=== PATIENT | male | born 1960 | race American Indian/Alaskan Native ===

== ENCOUNTER 2018-08-30 18:40 | Inpatient (IN) | payer MEDICARE, OTHER ==
[2018-08-30] MEDS ORDERED: ASPIRIN PO ONE (18:55)
[2018-08-30 19:39] LABS: Calcium 9.5 mg/dL (8.4-10.2)
[2018-08-30 19:54] LABS: Basophils % (Auto) 0.8 % (0.0-1.8); Eosinophils # (Auto) 0.2 K/mm3 (0.0-0.4); Eosinophils % (Auto) 4.1 % (0.0-4.3); Hematocrit 35.4 % (35.5-45.6); Hemoglobin 12.1 gm/dl (11.8-15.2); Lymphocytes # (Auto) 1.7 K/mm3 (1.2-5.4); Lymphocytes % (Auto) 27.6 % (13.4-35.0); Mean Corpuscular HGB Conc 34 % (32-34); Mean Corpuscular Volume 94 fl (84-94); Monocytes # (Auto) 0.7 K/mm3 (0.0-0.8); Monocytes % (Auto) 11.2 % (0.0-7.3); Platelet Count 142 K/mm3 (140-440); Red Blood Count 3.77 M/mm3 (3.65-5.03); Red Cell Distribution Width 13.9 % (13.2-15.2)
[2018-08-30 20:23] LABS: Chol/HDL Ratio 4.27 %
[2018-08-30] MEDS ORDERED: SODIUM BICARBONATE IV ONE (20:24)
[2018-08-30] MEDS ORDERED: CALCIUM CHLORIDE IV ONE (20:27)
[2018-08-30] MEDS ORDERED: D50W (25GM) Vial IV ONE (20:27)
[2018-08-30] MEDS ORDERED: HumuLIN R IV ONE (20:28)
[2018-08-30] MEDS ORDERED: PROVENTIL IH ONE (20:28)
[2018-08-30] MEDS ORDERED: ZOFRAN IV ONE (20:41)
[2018-08-30] MEDS ORDERED: MORPHINE IV ONE (20:41)
[2018-08-30] MEDS ORDERED: LASIX IV ONE (20:42)
[2018-08-30] MEDS ORDERED: D50W (25GM) Syringe IV ONE ×2 (21:00→22:00)
[2018-08-30] MEDS ORDERED: KIONEX PO ONE (21:02)
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
[2018-08-30] MEDS ORDERED: MORPHINE IV PRN (22:47)
[2018-08-30] MEDS ORDERED: ZOFRAN IV PRN (22:47)
[2018-08-30] MEDS ORDERED: TYLENOL PO PRN (22:48)
[2018-08-30] MEDS ORDERED: NITROSTAT SL PRN (22:53)
[2018-08-30] MEDS ORDERED: D50W (25GM) Syringe IV PRN (22:56)
--- NOTE | 2018-08-30 23:11 | XRay Report ---
FINAL REPORT PROCEDURE: XR CHEST 1V AP TECHNIQUE: Chest radiograph anteroposterior view. CPT 27435 HISTORY: cp COMPARISON: No prior studies are available for comparison. FINDINGS: Heart: Normal. Mediastinum/Vessels: Normal. Lungs/Pleural space: Normal. Bony thorax: No acute osseous abnormality. Life support devices: None. IMPRESSION: No acute cardiopulmonary abnormality.
[2018-08-31 01:24] LABS: Creatine Kinase MB 1.2 ng/mL (0.0-4.0)
[2018-08-31] MEDS: HumaLOG SUB-Q SCH ×5 (03:01→19:45)
[2018-08-31] MEDS: NITRO-BID 2% TP SCH ×5 (03:02→17:21)
[2018-08-31 05:59] LABS: Creatine Kinase MB 1.1 ng/mL (0.0-4.0)
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
--- NOTE | 2018-08-31 09:54 | Consultation ---
History of Present Illness - Reason for Consult Consult date: 08/31/18 end stage renal disease - History of Present Illness patient is a 58 year old male with ESRD on HD, last tx 08/29, came to the ED for chest pain, chest xray was normal but was found to have mildly elevated troponin, he was also found to have elevated K. renal consult was requested for HD management Past History Past Medical History: ESRD, hypertension Medications and Allergies Allergies Allergy/AdvReac Type Severity Reaction Status Date / Time vancomycin Allergy Unknown Verified 08/30/18 18:55 Home Medications Medication Instructions Recorded Confirmed Last Taken Type Aspirin [Aspirin BABY CHEW TAB] 81 mg PO DAILY 10/19/13 08/31/18 08/29/18 History Ferrous Sulfate [Feosol] 325 mg PO DAILY 10/19/13 08/31/18 08/29/18 History Atorvastatin 80 mg PO DAILY 08/31/18 08/31/18 08/29/18 History Calcitriol [Rocaltrol] 0.25 mcg PO DAILY MDD 2 08/31/18 08/31/18 08/29/18 History Cholecalciferol (Vitamin D3) 1,000 unit PO DAILY 08/31/18 08/31/18 08/29/18 History Fosrenol 500 mg PO DAILY 08/31/18 08/31/18 08/29/18 History Midodrine HCl 5 mg PO PRN 08/31/18 08/31/18 Unknown History NovoLIN 70/30 35 units SUB-Q HS 08/31/18 08/31/18 08/29/18 History NovoLIN 70/30 45 units SUB-Q AC 08/31/18 08/31/18 08/29/18 History Active Meds: Active Medications Acetaminophen (Tylenol) 650 mg PO Q4H PRN PRN Reason: Headache Aspirin (Aspirin) 325 mg PO QDAY [facility] Dextrose (D50w (25gm) Syringe) 50 ml IV PRN PRN PRN Reason: Hypoglycemia Last Admin: 08/31/18 07:22 Dose: 50 ml Documented by: Heparin Sodium (Porcine) (Heparin) 5,000 unit SUB-Q Q12HR JULIA Insulin Human Lispro (Humalog) 0 unit SUB-Q Q4H JULIA; Protocol Last Admin: 08/31/18 08:18 Dose: Not Given Documented by: Morphine Sulfate (Morphine) 2 mg IV Q3H PRN PRN Reason: Pain, Moderate (4-6) Nitroglycerin (Nitrostat) 0.4 mg SL .Q5MIN PRN PRN Reason: Chest Pain Nitroglycerin (Nitro-Bid 2%) 0.5 inch TP QIDNTG [facility]; Protocol Last Admin: 08/31/18 05:48 Dose: 0.5 inch Documented by: Ondansetron HCl (Zofran) 4 mg IV Q8H PRN PRN Reason: Nausea And Vomiting Review of Systems All systems: negative (chest pain) Exam - Vital Signs Vital signs: Vital Signs Temp Pulse Resp BP Pulse Ox 99.6 F 96 H 20 155/71 100 08/30/18 18:50 08/30/18 18:50 08/30/18 18:50 08/30/18 18:50 08/30/18 18:50 - General Appearance General appearance: well-developed, well-nourished EENT: ATNC, PERRL, mucous membranes moist Neck: Present: neck supple Respiratory: Clear to Ascultation Heart: regular, S1S2 Gastrointestinal: Present: normoactive bowel sounds Integumentary: no rash, warm and dry Neurologic: no focal deficit, no asterixis, alert and oriented x3 Musculoskeletal: Present: other (no edema in BLE) Psychiatric: mood/affect appropriate, cooperative Results - Lab Results 08/30/18 19:16 08/31/18 04:38 Most recent lab results Calcium 10.0 mg/dL (8.4-10.2) 08/31/18 00:29 Assessment and Plan ESRD on HD hyperkalemia chest pain with elevated tropnin HTN - HD today for clearance and volume removal - will assess dialysis needs daily - renally dose meds - strict I&O - daily weight Jose Ferreira MD [phone]
[2018-08-31] MEDS: ASPIRIN PO SCH (13:03)
[2018-08-31] MEDS: HEPARIN SUB-Q SCH ×2 (13:04→22:02)
--- NOTE | 2018-08-31 14:29 | Consultation ---
History of Present Illness Consult date: 08/31/18 Consult reason: chest pain, elevated troponin History of present illness: The patient is a 58-year-old man with end-stage renal disease on hemodialysis, diabetes and hyperlipidemia. He is also legally blind. He is unable to articu late any history of significant cardiac disease, or details of any prior cardiac workup. He is admitted to the hospital with complaints of nonexertional, atypical, poorly characterized chest pain. She was also reported to have had some shortness of breath. He was brought to the emergency room where his creatinine was 7.9 consistent with his end-stage renal disease, but potassium was markedly elevated at 6.9, and there was a minimal troponin rise of 0.05. Patient is currently comfortable in the dialysis unit undergoing routine dialysis. EKG was in normal sinus rhythm, left ventricular hypertrophy with intraventricular conduction delay, no acute ST or T-wave abnormalities. Past History Past Medical History: diabetes, ESRD, hypertension Medications and Allergies Allergies Allergy/AdvReac Type Severity Reaction Status Date / Time vancomycin Allergy Unknown Verified 08/30/18 18:55 Home Medications Medication Instructions Recorded Confirmed Last Taken Type Aspirin [Aspirin BABY CHEW TAB] 81 mg PO DAILY 10/19/13 08/31/18 08/29/18 History Ferrous Sulfate [Feosol] 325 mg PO DAILY 10/19/13 08/31/18 08/29/18 History Atorvastatin 80 mg PO DAILY 08/31/18 08/31/18 08/29/18 History Calcitriol [Rocaltrol] 0.25 mcg PO DAILY MDD 2 08/31/18 08/31/18 08/29/18 History Cholecalciferol (Vitamin D3) 1,000 unit PO DAILY 08/31/18 08/31/18 08/29/18 Hist ory Fosrenol 500 mg PO DAILY 08/31/18 08/31/18 08/29/18 History Midodrine HCl 5 mg PO PRN 08/31/18 08/31/18 Unknown History NovoLIN 70/30 35 units SUB-Q HS 08/31/18 08/31/18 08/29/18 History NovoLIN 70/30 45 units SUB-Q AC 08/31/18 08/31/18 08/29/18 History Active Meds: Active Medications Acetaminophen (Tylenol) 650 mg PO Q4H PRN PRN Reason: Headache Aspirin (Aspirin) 325 mg PO QDAY [facility] Last Admin: 08/31/18 13:03 Dose: Not Given Documented by: Dextrose (D50w (25gm) Syringe) 50 ml IV PRN PRN PRN Reason: Hypoglycemia Last Admin: 08/31/18 07:22 Dose: 50 ml Documented by: Heparin Sodium (Porcine) (Heparin) 5,000 unit SUB-Q Q12HR [facility] Last Admin: 08/31/18 13:04 Dose: Not Given Documented by: Insulin Human Lispro (Humalog) 0 unit SUB-Q Q4H [facility]; Protocol Last Admin: 08/31/18 13:04 Dose: Not Given Documented by: Morphine Sulfate (Morphine) 2 mg IV Q3H PRN PRN Reason: Pain, Moderate (4-6) Nitroglycerin (Nitrostat) 0.4 mg SL .Q5MIN PRN PRN Reason: Chest Pain Nitroglycerin (Nitro-Bid 2%) 0.5 inch TP QIDNTG [facility]; Protocol Last Admin: 08/31/18 13:04 Dose: Not Given Documented by: Ondansetron HCl (Zofran) 4 mg IV Q8H PRN PRN Reason: Nausea And Vomiting Review of Systems Cardiovascular: chest pain, no orthopnea, no palpitations, no rapid/irregular heart beat, no edema, no syncope, no lightheadedness, no shortness of breath Physical Examination Vital Signs Temp Pulse Resp BP Pulse Ox 99.6 F 96 H 20 155/71 100 08/30/18 18:50 08/30/18 18:50 08/30/18 18:50 08/30/18 18:50 08/30/18 18:50 General appearance: no acute distress HEENT: Positive: PERRL Neck: Positive: neck supple Cardiac: Positive: Reg Rate and Rhythm Lungs: Positive: Decreased Breath Sounds Neuro: Positive: Grossly Intact Abdomen: Positive: Soft Male genitourinary: Positive: deferred Skin: Positive: Clear Extremities: Absent: edema Results 08/30/18 19:16 08/31/18 04:38 Cardiac Enzymes 08/31/18 08/31/18 Range/Units 00:29 04:38 CK-MB (CK-2) 1.2 1.1 (0.0-4.0) ng/mL Lipids 08/30/18 Range/Units 19:16 Triglycerides 317 H (2-149) mg/dL Cholesterol 141 (50-199) mg/dL HDL Cholesterol 33 L (40-59) mg/dL Cholesterol/HDL Ratio 4.27 % CBC 08/30/18 Range/Units 19:16 WBC 6.1 (4.5-11.0) K/mm3 RBC 3.77 (3.65-5.03) M/mm3 Hgb 12.1 (11.8-15.2) gm/dl Hct 35.4 L (35.5-45.6) % Plt Count 142 (140-440) K/mm3 Lymph # 1.7 (1.2-5.4) K/mm3 [place] # 0.7 (0.0-0.8) K/mm3 Eos # 0.2 (0.0-0.4) K/mm3 Baso # 0.0 (0.0-0.1) K/mm3 Comprehensive Metabolic Panel 08/30/18 08/31/18 08/31/18 Range/Units 19:16 00:29 04:38 Sodium 131 L 136 L (137-145) mmol/L Potassium 6.9 H* 5.5 H D 5.6 H (3.6-5.0) mmol/L Chloride 89.8 L 92.2 L (98-107) mmol/L Carbon Dioxide 30 32 H (22-30) mmol/L BUN 28 H 29 H (9-20) mg/dL Creatinine 7.9 H 8.2 H (0.8-1.5) mg/dL Glucose 115 H 102 H (75-100) mg/dL Calcium 9.5 10.0 (8.4-10.2) mg/dL EKG interpretations - Telemetry EKG Rhythm: Sinus Rhythm Assessment and Plan - Patient Problems (1) Chest pain Current Visit: Yes Status: Acute Plan to address problem: Patient with multiple coronary risk factors, presents with somewhat atypical chest pain, we will recommend a Lexiscan stress test for further ischemic c ardiac evaluation.
--- NOTE | 2018-08-31 16:14 | Progress Note ---
Assessment and Plan Assessment and plan: Patient is a 58-year-old male with past medical history of end-stage renal disease on hemodialysis hyperlipidemia hypertension diabetes and is also legally blind with severe opacification of the lenses are noted likely secondary to cataract. Patient presents to the hospital and was admitted with nonexertional chest pain atypical in nature. Patient was noted to have a significantly elevated potassium requiring hemodialysis with EKG showing normal sinus rhythm with no acute ST or T-wave abnormalities. Patient is admitted for further workup. Atypical chest pain- Work up for etiology ongoing Hyperkalemia ESRD NSTEMI TYPE 2 Hyponatermia LEGALLY BLIND PLAN Supportive care Continue HD Diet education reinforcement Stress test in AM DVT/GI prophy Discharge if electrolyte is stable and stress test negative. History Interval history: Patient seen and examined, currently undergoing dialysis. No new complaints. still reports chest pain but improving. no shortness of breath or diaphoresis associated. Hospitalist Physical - Physical exam Narrative exam: VITAL SIGNS: Reviewed. GENERAL: The patient appeared well nourished and normally developed. Vital signs as documented. HEAD: No signs of head trauma. EYES: Pupils are equal. Opacification of lense EARS: Hearing grossly intact. MOUTH: Oropharynx is normal. NECK: No adenopathy, no JVD. CHEST: Chest with clear breath sounds bilaterally. No wheezes, rales, or rhonchi. CARDIAC: Regular rate and rhythm. S1 and S2, without murmurs, gallops, or rubs. VASCULAR: No Edema. Peripheral pulses normal and equal in all extremities. ABDOMEN: Soft, without detectable tenderness. No sign of distention. No rebound or guarding, and no masses palpated. Bowel Sounds normal. MUSCULOSKELETAL: Good range of motion of all major joints. Extremities without clubbing, cyanosis or edema. NEUROLOGIC EXAM: Alert and oriented x 3. No focal sensory or strength deficits. Speech normal. Follows commands. PSYCHIATRIC: Mood normal. SKIN: No rash or lesions. - Constitutional Vitals: Temp Pulse Resp BP Pulse Ox 98.5 F 88 19 126/66 97 08/31/18 04:44 08/31/18 15:12 08/31/18 10:00 08/31/18 15:12 08/31/18 10:00 General appearance: Present: no acute distress Results - Labs CBC & Chem 7: 08/30/18 19:16 08/31/18 04:38 Labs: Laboratory Last Values WBC 6.1 K/mm3 (4.5-11.0) 08/30/18 19:16 RBC 3.77 M/mm3 (3.65-5.03) 08/30/18 19:16 Hgb 12.1 gm/dl (11.8-15.2) 08/30/18 19:16 Hct 35.4 % (35.5-45.6) L 08/30/18 19:16 MCV 94 fl (84-94) 08/30/18 19:16 MCH 32 pg (28-32) 08/30/18 19:16 MCHC 34 % (32-34) 08/30/18 19:16 RDW 13.9 % (13.2-15.2) 08/30/18 19:16 Plt Count 142 K/mm3 (140-440) 08/30/18 19:16 Lymph % (Auto) 27.6 % (13.4-35.0) 08/30/18 19:16 [place] % (Auto) 11.2 % (0.0-7.3) H 08/30/18 19:16 Eos % (Auto) 4.1 % (0.0-4.3) 08/30/18 19:16 Baso % (Auto) 0.8 % (0.0-1.8) 08/30/18 19:16 Lymph # 1.7 K/mm3 (1.2-5.4) 08/30/18 19:16 [place] # 0.7 K/mm3 (0.0-0.8) 08/30/18 19:16 Eos # 0.2 K/mm3 (0.0-0.4) 08/30/18 19:16 Baso # 0.0 K/mm3 (0.0-0.1) 08/30/18 19:16 Seg Neutrophils % 56.3 % (40.0-70.0) 08/30/18 19:16 Seg Neutrophils # 3.4 K/mm3 (1.8-7.7) 08/30/18 19:16 Sodium 136 mmol/L (137-145) L 08/31/18 00:29 Potassium 5.6 mmol/L (3.6-5.0) H 08/31/18 04:38 Chloride 92.2 mmol/L (98-107) L 08/31/18 00:29 Carbon Dioxide 32 mmol/L (22-30) H 08/31/18 00:29 Anion Gap 17 mmol/L 08/31/18 00:29 BUN 29 mg/dL (9-20) H 08/31/18 00:29 Creatinine 8.2 mg/dL (0.8-1.5) H 08/31/18 00:29 Estimated GFR 8 ml/min 08/31/18 00:29 BUN/Creatinine Ratio 4 % 08/31/18 00:29 Glucose 102 mg/dL (75-100) H 08/31/18 00:29 POC Glucose 41 (70-105) L 08/31/18 07:18 Calcium 10.0 mg/dL (8.4-10.2) 08/31/18 00:29 Total Creatine Kinase 89 units/L (55-170) 08/31/18 04:38 CK-MB (CK-2) 1.1 ng/mL (0.0-4.0) 08/31/18 04:38 CK-MB (CK-2) Rel Index 1.2 (0-4) 08/31/18 04:38 Troponin T 0.050 ng/mL (0.00-0.029) H 08/31/18 04:38 Triglycerides 317 mg/dL (2-149) H 08/30/18 19:16 Cholesterol 141 mg/dL (50-199) 08/30/18 19:16 LDL Cholesterol Direct 85 mg/dL (50-130) 08/30/18 19:16 HDL Cholesterol 33 mg/dL (40-59) L 08/30/18 19:16 Cholesterol/HDL Ratio 4.27 % 08/30/18 19:16
[2018-08-31] MEDS ORDERED: NACL 0.9% 250ML 250 ML IV ONE (18:40)
[2018-09-01] MEDS: HumaLOG SUB-Q SCH ×7 (00:14→23:18)
[2018-09-01] MEDS: NITRO-BID 2% TP SCH ×4 (05:32→17:41)
[2018-09-01 06:33] LABS: Hematocrit 34.2 % (35.5-45.6); Hemoglobin 11.2 gm/dl (11.8-15.2); Mean Corpuscular HGB Conc 33 % (32-34); Mean Corpuscular Volume 95 fl (84-94); Platelet Count 107 K/mm3 (140-440); Red Cell Distribution Width 14.2 % (13.2-15.2)
[2018-09-01 06:39] LABS: BUN/Creatinine Ratio 3; Blood Urea Nitrogen 23 mg/dL (9-20); Calcium 8.6 mg/dL (8.4-10.2); Hemolysis Index 503
[2018-09-01 09:12] LABS: Calcium 9.1 mg/dL (8.4-10.2)
[2018-09-01] MEDS ORDERED: LEXISCAN IV ONE (10:30)
--- NOTE | 2018-09-01 10:59 | Progress Note ---
Assessment and Plan ESRD on HD hyperkalemia chest pain with elevated tropnin HTN - HD again today for clearance and volume removal - will assess dialysis needs daily - renally dose meds - strict I&O - daily weight Jose Ferreira MD [phone] Subjective Date of service: 09/01/18 Principal diagnosis: ESRD Interval history: was in HD this AM Objective - Vital Signs Vital signs: Vital Signs - 12hr 09/01/18 09/01/18 09/01/18 00:06 03:57 04:00 Temperature 97.9 F 98.3 F Pulse Rate 54 L 47 L 47 L Respiratory 18 18 Rate Blood Pressure 119/62 119/53 O2 Sat by Pulse 94 96 Oximetry 09/01/18 09/01/18 07:58 08:56 Temperature 98.7 F Pulse Rate 90 Respiratory 16 Rate Blood Pressure 137/77 O2 Sat by Pulse 97 99 Oximetry - Lab 09/01/18 05:55 09/01/18 06:58 Most recent lab results Calcium 9.1 mg/dL (8.4-10.2) 09/01/18 06:58 Medications & Allergies - Medications Allergies/Adverse Reactions: Allergies vancomycin Allergy (Verified 08/30/18 18:55) Unknown Home Medications: Home Medications Medication Instructions Recorded Confirmed Last Taken Type Aspirin [Aspirin BABY CHEW TAB] 81 mg PO DAILY 10/19/13 08/31/18 08/29/18 History Ferrous Sulfate [Feosol] 325 mg PO DAILY 10/19/13 08/31/18 08/29/18 History Atorvastatin 80 mg PO DAILY 08/31/18 08/31/18 08/29/18 History Calcitriol [Rocaltrol] 0.25 mcg PO DAILY MDD 2 08/31/18 08/31/18 08/29/18 History Cholecalciferol (Vitamin D3) 1,000 unit PO DAILY 08/31/18 08/31/18 08/29/18 History Fosrenol 500 mg PO DAILY 08/31/18 08/31/18 08/29/18 History Midodrine HCl 5 mg PO PRN 08/31/18 08/31/18 Unknown History NovoLIN 70/30 35 units SUB-Q HS 08/31/18 08/31/18 08/29/18 History NovoLIN 70/30 45 units SUB-Q AC 08/31/18 08/31/1819 History Active Medications: Generic Name Dose Route Start Last Admin Trade Name Chapoq PRN Reason Stop Dose Admin Acetaminophen 650 mg 08/30/18 22:48 Tylenol PO Q4H PRN Headache Aspirin 325 mg 08/31/18 10:00 08/31/18 13:03 Aspirin PO Not Given QDAY [facility] Dextrose 50 ml 08/30/18 22:56 08/31/18 07:22 D50w (25gm) Syringe IV 50 ml PRN PRN Administration Hypoglycemia Heparin Sodium (Porcine) 5,000 unit 08/31/18 10:00 08/31/18 22:02 Heparin SUB-Q 5,000 unit Q12HR JULIA Administration Insulin Human Lispro 0 unit 08/30/18 23:00 09/01/18 08:49 Humalog SUB-Q Not Given Q4H [facility] Protocol Morphine Sulfate 2 mg 08/30/18 22:47 09/01/18 08:47 Morphine IV 2 mg Q3H PRN Administration Pain, Moderate (4-6) Nitroglycerin 0.4 mg 08/30/18 22:53 Nitrostat SL .Q5MIN PRN Chest Pain Nitroglycerin 0.5 inch 08/31/18 00:00 09/01/18 05:32 Nitro-Bid 2% TP Not Given QIDNTG [facility] Protocol Ondansetron HCl 4 mg 08/30/18 22:47 Zofran IV Q8H PRN Nausea And Vomiting
[2018-09-01] MEDS: ASPIRIN PO SCH (12:05)
[2018-09-01] MEDS: HEPARIN SUB-Q SCH ×2 (12:05→21:55)
--- NOTE | 2018-09-01 12:10 | Progress Note ---
Assessment and Plan - Patient Problems (1) Chest pain Current Visit: Yes Status: Acute Plan to address problem: Patient with multiple coronary risk factors, presents with somewhat atypical chest pain, Lexiscan stress test is negative for ischemia. (2) Bradycardia Current Visit: Yes Status: Acute Plan to address problem: Patient was noted with bradycardia while on telemetry this morning at 06:34. The strips show short cycles of sinus rhythm with Wenckebach AV block. No cardiac intervention is indicated for Wenckebach, but we recommend optimizing electrolytes especially potassium levels during dialysis. Subjective Date of service: 09/01/18 Principal diagnosis: ESRD Interval history: Patient is comfortable, underwent a pharmacologic stress test with myocardial perfusion imaging this morning, results are negative. Objective Vital Signs Temp Pulse Pulse Pulse Pulse Resp BP 09/01/18 12:01 90 137/77 09/01/18 10:00 90 90 90 19 09/01/18 08:56 09/01/18 07:58 98.7 F 90 16 137/77 09/01/18 04:00 47 L 09/01/18 03:57 98.3 F 47 L 18 119/53 09/01/18 00:06 97.9 F 54 L 18 119/62 08/31/18 20:00 100 H 08/31/18 19:46 98.2 F 98 H 18 89/51 08/31/18 18:42 08/31/18 17:21 90 86/40 08/31/18 16:51 08/31/18 16:24 86/40 08/31/18 15:12 88 126/66 08/31/18 14:45 98.0 F 88 18 124/66 08/31/18 14:30 82 122/64 08/31/18 14:15 80 120/62 08/31/18 14:00 82 124/66 08/31/18 13:45 84 120/68 08/31/18 13:30 86 124/66 08/31/18 13:15 88 120/66 08/31/18 13:04 83 180/48 08/31/18 13:00 89 125/67 08/31/18 12:45 93 H 122/61 08/31/18 12:30 88 110/50 08/31/18 12:15 89 117/50 Pulse Ox 09/01/18 12:01 09/01/18 10:00 99 01/29/19 08:56 99 09/01/18 07:58 97 09/01/18 04:00 09/01/18 03:57 96 09/01/18 00:06 94 08/31/18 20:00 08/31/18 19:46 97 08/31/18 18:42 97 08/31/18 17:21 08/31/18 16:51 97 08/31/18 16:24 08/31/18 15:12 08/31/18 14:45 08/31/18 14:30 08/31/18 14:15 08/31/18 14:00 08/31/18 13:45 08/31/18 13:30 08/31/18 13:15 08/31/18 13:04 08/31/18 13:00 08/31/18 12:45 08/31/18 12:30 08/31/18 12:15 - Physical Examination General: No Apparent Distress HEENT: Positive: PERRL Neck: Positive: neck supple Cardiac: Positive: Reg Rate and Rhythm Lungs: Positive: Decreased Breath Sounds Neuro: Positive: Grossly Intact Abdomen: Positive: Soft Skin: Positive: Clear Extremities: Absent: edema - Labs and Meds CBC 09/01/18 Range/Units 05:55 WBC 4.3 L (4.5-11.0) K/mm3 RBC 3.60 L (3.65-5.03) M/mm3 Hgb 11.2 L (11.8-15.2) gm/dl Hct 34.2 L (35.5-45.6) % Plt Count 107 L (140-440) K/mm3 Comprehensive Metabolic Panel 09/01/18 09/01/18 Range/Units 05:55 06:58 Sodium 133 L 136 L (137-145) mmol/L Potassium TNR 5.9 H Chloride 91.9 L 94.1 L (98-107) mmol/L Carbon Dioxide 29 27 (22-30) mmol/L BUN 23 H 24 H (9-20) mg/dL Creatinine 8.3 H 8.5 H (0.8-1.5) mg/dL Glucose 146 H 151 H (75-100) mg/dL Calcium 8.6 9.1 (8.4-10.2) mg/dL
[2018-09-01] MEDS ORDERED: NACL 0.9 (PRIMING MACHINE ONLY DIALYSIS) MC ONE (15:52)
[2018-09-01 16:00] LABS: Hepatitis B Surface Antigen Non-Reactive (Negative); Hepatitis C Virus Antibody Non-Reactive (NonReactive)
--- NOTE | 2018-09-01 16:03 | Progress Note ---
Assessment and Plan Assessment and plan: Patient is a 58-year-old male with past medical history of end-stage renal disease on hemodialysis hyperlipidemia hypertension diabetes and is also legally blind with severe opacification of the lenses are noted likely secondary to cataract. Patient presents to the hospital and was admitted with nonexertional chest pain atypical in nature. Patient was noted to have a significantly elevated potassium requiring hemodialysis with EKG showing normal sinus rhythm with no acute ST or T-wave abnormalities. Patient is admitted for further workup. Atypical chest pain-stress test was negative, cardiology consult appreciated. Patient had episode of bradycardia this morning, [place] heart block. Cardiology recommended correct electrolytes. No need of intervention. We'll monitor overnight on telemetry Hyperkalemia; agent is on dialysis now and will check BMP in the morning ESRD NSTEMI TYPE 2 Hyponatermia; resolved LEGALLY BLIND Disposition; will discharge tomorrow AM. History Interval history: Patient was seen and evaluated this morning, in the dialysis unit, patient didn't have any complaints. Hospitalist Physical - Physical exam Narrative exam: Not in cardiopulmonary distress. Patient is legally blind. The patient is obese. Vital signs as documented. Head exam is unremarkable. No scleral icterus . Neck is without jugular venous distension, thyromegaly, or carotid bruits. Lungs are clear to auscultation. Cardiac exam reveals regular rate and Rhythm. First and second heart sounds normal. No murmurs, rubs or gallops. Abdominal exam reveals normal bowel sounds, no masses, no organomegaly and no aortic enlargement. Extremities are nonedematous and both femoral and pedal pulses are normal. 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 No focal weakness. - Constitutional Vitals: Temp Pulse Resp BP Pulse Ox 98.0 F 93 H 18 155/79 99 09/01/18 15:30 09/01/18 15:30 09/01/18 15:30 09/01/18 15:30 09/01/18 10:00 General appearance: Present: no acute distress Results - Labs CBC & Chem 7: 09/01/18 05:55 09/01/18 06:58 Labs: Laboratory Last Values WBC 4.3 K/mm3 (4.5-11.0) L 09/01/18 05:55 RBC 3.60 M/mm3 (3.65-5.03) L 09/01/18 05:55 Hgb 11.2 gm/dl (11.8-15.2) L 09/01/18 05:55 Hct 34.2 % (35.5-45.6) L 09/01/18 05:55 MCV 95 fl (84-94) H 09/01/18 05:55 MCH 31 pg (28-32) 09/01/18 05:55 MCHC 33 % (32-34) 09/01/18 05:55 RDW 14.2 % (13.2-15.2) 09/01/18 05:55 Plt Count 107 K/mm3 (140-440) L 09/01/18 05:55 Lymph % (Auto) 27.6 % (13.4-35.0) 08/30/18 19:16 [place] % (Auto) 11.2 % (0.0-7.3) H 08/30/18 19:16 Eos % (Auto) 4.1 % (0.0-4.3) 08/30/18 19:16 Baso % (Auto) 0.8 % (0.0-1.8) 08/30/18 19:16 Lymph # 1.7 K/mm3 (1.2-5.4) 08/30/18 19:16 [place] # 0.7 K/mm3 (0.0-0.8) 08/30/18 19:16 Eos # 0.2 K/mm3 (0.0-0.4) 08/30/18 19:16 Baso # 0.0 K/mm3 (0.0-0.1) 08/30/18 19:16 Seg Neutrophils % 56.3 % (40.0-70.0) 08/30/18 19:16 Seg Neutrophils # 3.4 K/mm3 (1.8-7.7) 08/30/18 19:16 Sodium 136 mmol/L (137-145) L 09/01/18 06:58 Potassium 5.9 mmol/L (3.6-5.0) H 09/01/18 06:58 Chloride 94.1 mmol/L (98-107) L 09/01/18 06:58 Carbon Dioxide 27 mmol/L (22-30) 09/01/18 06:58 Anion Gap 21 mmol/L 09/01/18 06:58 BUN 24 mg/dL (9-20) H 09/01/18 06:58 Creatinine 8.5 mg/dL (0.8-1.5) H 09/01/18 06:58 Estimated GFR 8 ml/min 09/01/18 06:58 BUN/Creatinine Ratio 3 % 09/01/18 06:58 Glucose 151 mg/dL (75-100) H 09/01/18 06:58 POC Glucose 135 (70-105) H 09/01/18 04:08 Calcium 9.1 mg/dL (8.4-10.2) 09/01/18 06:58 Total Creatine Kinase 89 units/L (55-170) 08/31/18 04:38 CK-MB (CK-2) 1.1 ng/mL (0.0-4.0) 08/31/18 04:38 CK-MB (CK-2) Rel Index 1.2 (0-4) 08/31/18 04:38 Troponin T 0.062 ng/mL (0.00-0.029) H D 09/01/18 00:29 Triglycerides 317 mg/dL (2-149) H 08/30/18 19:16 Cholesterol 141 mg/dL (50-199) 08/30/18 19:16 LDL Cholesterol Direct 85 mg/dL (50-130) 08/30/18 19:16 HDL Cholesterol 33 mg/dL (40-59) L 08/30/18 19:16 Cholesterol/HDL Ratio 4.27 % 08/30/18 19:16
--- NOTE | 2018-09-02 02:03 | Treadmill Report ---
THALLIUM STRESS TEST LEFT VENTRICLE: Left ventricular chamber size is within normal spread. Perfusion study demonstrates homogeneous uptake of the tracer in all segments, no significant perfusion defects identified. Mild diaphragmatic attenuation artifact is noted. Gated analysis demonstrates normal left ventricular systolic function, ejection fraction 55%. CONCLUSION: Normal myocardial perfusion study. JOB# [id number] CA/NTS
[2018-09-02] MEDS: HumaLOG SUB-Q SCH ×2 (02:32→06:53)
[2018-09-02 05:19] LABS: Calcium 8.9 mg/dL (8.4-10.2)
[2018-09-02] MEDS: NITRO-BID 2% TP SCH ×2 (05:26→09:27)
[2018-09-02 08:21] VITALS: BP 107/89
--- NOTE | 2018-09-02 08:32 | Progress Note ---
Assessment and Plan Chest pain MPI negative for ischemia, EF 55%. Hyperkalemia -resolved End-stage renal disease on hemodialysis Diabetes Hyperlipidemia Legally blind No further cardiac workup indicated. We will sign off. Subjective Date of service: 09/02/18 Principal diagnosis: ESRD Interval history: Patient has no complaints Sinus rhythm with Wenckebach AV block. Objective Vital Signs Temp Pulse Pulse Pulse Pulse Resp BP 09/02/18 07:33 98.9 F 90 16 107/89 09/02/18 05:00 91 H 09/02/18 04:57 98.6 F 86 17 131/69 09/02/18 00:14 98.2 F 92 H 17 130/65 09/01/18 20:32 99.4 F 94 H 17 93/47 09/01/18 20:26 101 H 09/01/18 17:41 89 128/82 09/01/18 17:05 90 137/66 09/01/18 16:38 88 09/01/18 16:23 99.1 F 62 16 09/01/18 16:22 107/58 09/01/18 16:21 102 H 107/58 09/01/18 15:30 98.0 F 93 H 18 155/79 09/01/18 15:15 90 130/74 09/01/18 15:00 90 136/73 09/01/18 14:45 92 H 145/74 09/01/18 14:30 92 H 138/74 09/01/18 14:15 90 131/66 09/01/18 14:00 88 122/61 09/01/18 13:45 87 112/57 09/01/18 13:30 86 114/56 09/01/18 13:15 82 110/58 09/01/18 13:00 83 109/57 09/01/18 12:50 87 92/50 09/01/18 12:45 88 79/43 09/01/18 12:30 84 100/56 09/01/18 12:20 85 96/55 09/01/18 12:15 88 86/54 09/01/18 12:01 90 137/77 09/01/18 12:00 86 101/59 09/01/18 11:45 98.0 F 88 18 133/71 09/01/18 10:00 90 90 90 19 09/01/18 08:56 Pulse Ox 09/02/18 07:33 100 09/02/18 05:00 09/02/18 04:57 97 09/02/18 00:14 93 09/01/18 20:32 95 09/01/18 20:26 09/01/18 17:41 09/01/18 17:05 09/01/18 16:38 09/01/18 16:23 89 09/01/18 16:22 09/01/18 16:21 99 09/01/18 15:30 09/01/18 15:15 09/01/18 15:00 09/01/18 14:45 09/01/18 14:30 09/01/18 14:15 09/01/18 14:00 09/01/18 13:45 09/01/18 13:30 09/01/18 13:15 09/01/18 13:00 09/01/18 12:50 09/01/18 12:45 09/01/18 12:30 09/01/18 12:20 09/01/18 12:15 09/01/18 12:01 09/01/18 12:00 09/01/18 11:45 09/01/18 10:00 99 09/01/18 08:56 99 - Physical Examination General: No Apparent Distress Cardiac: Positive: Reg Rate and Rhythm Neuro: Positive: Grossly Intact Extremities: Absent: edema - Labs and Meds Comprehensive Metabolic Panel 09/01/18 09/02/18 Range/Units 06:58 04:35 Sodium 136 L (137-145) mmol/L Potassium 4.3 D (3.6-5.0) mmol/L Chloride 95.2 L (98-107) mmol/L Carbon Dioxide 27 29 (22-30) mmol/L BUN 24 H 18 (9-20) mg/dL Creatinine 8.5 H 6.2 H (0.8-1.5) mg/dL Glucose 151 H 183 H (75-100) mg/dL Calcium 9.1 8.9 (8.4-10.2) mg/dL
[2018-09-02] MEDS: ASPIRIN PO SCH (09:27)
[2018-09-02] MEDS: HEPARIN SUB-Q SCH (09:28)
--- NOTE | 2018-09-02 10:18 | Discharge Summary ---
Providers - Providers Date of Admission: 08/30/18 21:44 Date of discharge: 09/02/18 Attending physician: AGUS GAITAN MD 08/30/18 21:02 Consult to Physician [CONS] Urgent Comment: Consulting Provider: JOSTIN ELLINGTON Physician Instructions: Reason For Exam: esrd, hyperkalemia Primary care physician: NAZ MARTIN Hospitalization Reason for admission: chest pain, ESRD on hemodialysis Condition: Stable Pertinent studies: Chest x-ray normal studies Cardiac stress test negative for acute ischemia Hospital course: Patient is a 58-year-old male with past medical history significant for end- stage renal disease on hemodialysis, hyperlipidemia, hypertension, diabetes and is also legally blind with severe opacification of the lenses are noted likely secondary to cataract. Patient presents to the hospital and was admitted with nonexertional chest pain atypical in nature. Patient was noted to have a significantly elevated potassium requiring hemodialysis with EKG showing normal sinus rhythm with no acute ST or T-wave abnormalities. Patient is admitted for further workup. Atypical chest pain-stress test was negative, cardiology consult appreciated. Patient had episode of bradycardia, wenckebach heart block. Cardiology recommended correct electrolytes. No need of intervention and cleared him for discharge Hyperkalemia; resolved with dialysis ESRD; continue HD NSTEMI TYPE 2; cardiology recommended and it is due to ESRD. Hyponatermia; resolved LEGALLY BLIND Patient discharged home in a stable condition. I have seen and evaluated the patient at the bedside before discharge and questions and concern were addressed at the bedside. Disposition: DC-01 TO HOME OR SELFCARE Time spent for discharge: 32 minutes - Discharge Diagnoses (1) Bradycardia Status: Acute (2) Chest pain Status: Acute (3) Diabetes Status: Acute (4) ESRD (end stage renal disease) on dialysis Status: Acute (5) HTN (hypertension) Status: Acute (6) Hyperkalemia Status: Acute Core Measure Documentation - Palliative Care Palliative Care/ Comfort Measures: Not Applicable - Core Measures Any of the following diagnoses?: none Exam - Physical Exam Narrative exam: Not in cardiopulmonary distress. Patient is legally blind. The patient is obese. Vital signs as documented. Head exam is unremarkable. No scleral icterus . Neck is without jugular venous distension, thyromegaly, or carotid bruits. Lungs are clear to auscultation. Cardiac exam reveals regular rate and Rhythm. First and second heart sounds normal. No murmurs, rubs or gallops. Abdominal exam reveals normal bowel sounds, no masses, no organomegaly and no aortic enlargement. Extremities are nonedematous and both femoral and pedal pulses are normal. 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 No focal weakness. - Constitutional Vitals: Temp Pulse Resp BP Pulse Ox 98.9 F 87 16 107/89 100 09/02/18 07:33 09/02/18 08:00 09/02/18 07:33 09/02/18 07:33 09/02/18 07:33 Plan Activity: no restrictions Weight Bearing Status: Full Weight Bearing Diet: low cholesterol, renal Follow up with: DEBBIE GASTELUM MD [Staff Physician] - 7 Days NAZ MARTIN [Primary Care Provider] - 7 Days JOSTIN ELLINGTON MD [Staff Physician] - 7 Days
== END 2018-09-02 13:36 | disposition home or self-care (01) | DRG 280 ==
LOC: ED 18:40 → 4A 21:44
PROVIDERS: ADMIT Internal Medicine; ATTEND Internal Medicine
PROC: 5A1D70Z Performance of Urinary Filtration, Intermittent, Less than 6 Hours Per Day (ICD-10-PCS; principal; 2018-08-31)
PROC: 5A1D70Z Performance of Urinary Filtration, Intermittent, Less than 6 Hours Per Day (ICD-10-PCS; 2018-09-01)
DX: I21.A1 Myocardial infarction type 2 (principal); N18.6 End stage renal disease; I12.0 Hypertensive chronic kidney disease with stage 5 chronic kidney disease or end stage renal disease; E87.1 Hypo-osmolality and hyponatremia; E11.22 Type 2 diabetes mellitus with diabetic chronic kidney disease; E78.5 Hyperlipidemia, unspecified; H54.8 Legal blindness, as defined in USA; R00.1 Bradycardia, unspecified; E87.5 Hyperkalemia; Z79.82 Long term (current) use of aspirin; Z87.891 Personal history of nicotine dependence; Z89.422 Acquired absence of other left toe(s); Z89.421 Acquired absence of other right toe(s); Z88.1 Allergy status to other antibiotic agents
CPT/HCPCS: 36415; 71045; 78452; 80048; 80061; 80074; 82550; 82553; 82962; 84132; 84484; 85025; 85027; 93005; 93010; 93017; G0378; A9502; J1644; J1815; J1940; J2270; J2405; J2785; J7030; J7050

== ENCOUNTER 2019-02-05 08:08 | Observation (INO) | payer MEDICARE ==
--- NOTE | 2019-02-05 10:04 | Emergency Department Report ---
ED General Adult HPI - General Chief complaint: Hypoglycemia Stated complaint: HYPOGLYCEMIA Time Seen by Provider: 02/05/19 08:35 Source: patient, family, EMS (ems notes not available at time of chart dictation), RN notes reviewed Mode of arrival: Stretcher Limitations: Physical Limitation, Other (patient is blind) - History of Present Illness Initial comments: Primary care Dr.: [facility], question [place] [facility]: Dr. Isael Silvestre Past medical history: End-stage renal disease, on dialysis, Friday, , Friday, high cholesterol, hypertension, diabetes, cataracts, legally blind this is a pleasant 58-year-old gentleman. The patient is not known to this provider previously. Patient was last dialyzed on Friday. He did not go [address] because as per his , was having trouble with hypoglycemia. The patient denies physical pain today. Apparently, as per , patient was in bed, sweating, and was having convulsions. This was corrected with glucose. The patient is at his normal baseline mentally as per his . He denies physical pain at this time. He denies complaints at this time. He takes insulin 70/30, 45 units in the morning, and 30 units at night. As per his family, he is not really eating or drinking as much as he typically does. -: Sudden Consistency: now resolved Improves with: medication Worsens with: none Associated Symptoms: denies other symptoms - Related Data Home Medications Medication Instructions Recorded Confirmed Last Taken Aspirin [Aspirin BABY CHEW TAB] 81 mg PO DAILY 10/19/13 02/05/19 08/29/18 Ferrous Sulfate [Feosol 325mg] 325 mg PO DAILY 10/19/13 02/05/19 08/29/18 Atorvastatin 80 mg PO DAILY 08/31/18 02/05/19 08/29/18 Calcitriol [Rocaltrol] 0.25 mcg PO DAILY MDD 2 08/31/18 02/05/19 08/29/18 Cholecalciferol (Vitamin D3) 1,000 unit PO DAILY 08/31/18 02/05/19 08/29/18 Fosrenol 500 mg PO DAILY 08/31/18 02/05/19 08/29/18 Midodrine HCl 5 mg PO PRN 08/31/18 02/05/19 Unknown NovoLIN 70/30 35 units SUB-Q HS 08/31/18 02/05/19 08/29/18 NovoLIN 70/30 45 units SUB-Q AC 08/31/18 02/05/19 08/29/18 Allergies Allergy/AdvReac Type Severity Reaction Status Date / Time vancomycin Allergy Unknown Verified 08/30/18 18:55 ED Review of Systems ROS: Stated complaint: HYPOGLYCEMIA Other details as noted in HPI Constitutional: denies: fever Eyes: denies: eye discharge ENT: denies: throat pain Respiratory: denies: cough Cardiovascular: denies: chest pain Genitourinary: denies: dysuria Musculoskeletal: denies: back pain Skin: denies: lesions Neurological: other (history of convulsions, history of altered mental status) Hematological/Lymphatic: denies: easy bleeding ED Past Medical Hx - Past Medical History Hx Hypertension: Yes Hx Congestive Heart Failure: No Hx Diabetes: Yes Hx Asthma: No Hx COPD: No Additional medical history: HIGH CHOLESTEROL. ENLARGED HEART, ESRD - Surgical History Additional Surgical History: BILATERAL FEET- ALL TEN TOES AMPUTATED,SKIN GRAFT RT ANKLE R/T 3DEGREE SPENCE,BOTH EYES. Left arm fistula - Social History Smoking Status: Never Smoker Substance Use Type: None - Medications Home Medications: Home Medications Medication Instructions Recorded Confirmed Last Taken Type Aspirin [Aspirin BABY CHEW TAB] 81 mg PO DAILY 10/19/13 02/05/19 08/29/18 History Ferrous Sulfate [Feosol 325mg] 325 mg PO DAILY 10/19/13 02/05/19 08/29/18 History Atorvastatin 80 mg PO DAILY 08/31/18 02/05/19 08/29/18 History Calcitriol [Rocaltrol] 0.25 mcg PO DAILY MDD 2 08/31/18 02/05/19 08/29/18 History Cholecalciferol (Vitamin D3) 1,000 unit PO DAILY 08/31/18 02/05/19 08/29/18 History Fosrenol 500 mg PO DAILY 08/31/18 02/05/19 08/29/18 History Midodrine HCl 5 mg PO PRN 08/31/18 02/05/19 Unknown History NovoLIN 70/30 35 units SUB-Q HS 08/31/18 02/05/19 08/29/18 History NovoLIN 70/30 45 units SUB-Q AC 08/31/18 02/05/19 08/29/18 History ED Physical Exam - General Limitations: Physical Limitation, Other General appearance: alert, in no apparent distress - Head Head exam: Present: atraumatic, normocephalic - Eye Eye exam: Present: EOMI. Absent: normal appearance (chronic-appearing cataracts in the bilateral eyes.) - ENT ENT exam: Present: normal exam, normal orophraynx, mucous membranes moist, normal external ear exam - Neck Neck exam: Present: normal inspection, full ROM. Absent: tenderness, meningismus - Respiratory Respiratory exam: Present: normal lung sounds bilaterally. Absent: respiratory distress - Cardiovascular Cardiovascular Exam: Present: regular rate, normal rhythm, tachycardia, normal heart sounds. Absent: bradycardia, systolic murmur, diastolic murmur, rubs, gallop - GI/Abdominal GI/Abdominal exam: Present: soft. Absent: distended, tenderness, guarding, rebound, rigid, pulsatile mass - Rectal Rectal exam: Present: deferred - Extremities Exam Extremities exam: Present: normal inspection (status post chronic bilateral lower extremity transmetatarsal amputations.), full ROM (there is a left upper extremity fistula noted, with no redness, pus or streaking.), other (2+ pulses noted in the bilateral upper, lower extremities. Compartments soft. No long bony tenderness. The pelvis is stable.). Absent: calf tenderness - Back Exam Back exam: Present: normal inspection, full ROM. Absent: tenderness, CVA tenderness (R), CVA tenderness (L), paraspinal tenderness, vertebral tenderness - Neurological Exam Neurological exam: Present: alert, oriented X3, normal gait, other (Extraocular movements intact. Tongue midline. No facial droop. Facial sensation intact to light touch in the V1, V2, V3 distribution bilaterally. 5 and 5 strength in 4 extremities.. Sensation is intact to light touch in 4 extremities.). Absent: motor sensory deficit - Psychiatric Psychiatric exam: Present: normal affect, normal mood - Skin Skin exam: Present: warm, dry, intact, normal color. Absent: rash ED Course Vital Signs 02/05/19 02/05/19 02/05/19 08:30 08:41 09:00 Temperature 97.6 F Pulse Rate 72 76 69 Respiratory 14 15 36 H Rate Blood Pressure 178/88 187/90 Blood Pressure [Right] O2 Sat by Pulse 98 99 94 Oximetry 02/05/19 02/05/19 02/05/19 09:30 10:00 10:10 Temperature Pulse Rate 75 78 Respiratory 13 11 L 18 Rate Blood Pressure 203/114 201/102 Blood Pressure [Right] O2 Sat by Pulse 100 99 Oximetry 02/05/19 10:51 Temperature Pulse Rate Respiratory Rate Blood Pressure Blood Pressure 194/98 [Right] O2 Sat by Pulse Oximetry ED Medical Decision Making - Lab Data Result diagrams: 02/05/19 10:15 02/05/19 10:15 Vital Signs 02/05/19 02/05/19 02/05/19 08:30 08:41 09:00 Temperature 97.6 F Pulse Rate 72 76 69 Respiratory 14 15 36 H Rate Blood Pressure 178/88 187/90 Blood Pressure [Right] O2 Sat by Pulse 98 99 94 Oximetry 02/05/19 02/05/19 02/05/19 09:30 10:00 10:10 Temperature Pulse Rate 75 78 Respiratory 13 11 L 18 Rate Blood Pressure 203/114 201/102 Blood Pressure [Right] O2 Sat by Pulse 100 99 Oximetry 02/05/19 10:51 Temperature Pulse Rate Respiratory Rate Blood Pressure Blood Pressure 194/98 [Right] O2 Sat by Pulse Oximetry Lab Results 02/05/19 02/05/19 02/05/19 Range/Units 10:15 10:15 10:15 WBC 4.3 L (4.5-11.0) K/mm3 RBC 4.14 (3.65-5.03) M/mm3 Hgb 12.5 (11.8-15.2) gm/dl Hct 38.0 (35.5-45.6) % MCV 92 (84-94) fl MCH 30 (28-32) pg MCHC 33 (32-34) % RDW 15.6 H (13.2-15.2) % Plt Count 117 L (140-440) K/mm3 PT 12.8 (12.2-14.9) Sec. INR 0.99 (0.87-1.13) Sodium 139 (137-145) mmol/L Potassium 6.0 H (3.6-5.0) mmol/L Chloride 94.0 L (98-107) mmol/L Carbon Dioxide 28 (22-30) mmol/L Anion Gap 23 mmol/L BUN 60 H (9-20) mg/dL Creatinine 13.5 H (0.8-1.5) mg/dL Estimated GFR 5 ml/min BUN/Creatinine Ratio 4 % Glucose 74 L (75-100) mg/dL POC Glucose (70-105) Calcium 9.8 (8.4-10.2) mg/dL Magnesium (1.7-2.3) mg/dL Total Creatine Kinase 163 (55-170) units/L Salicylates (2.8-20.0) mg/dL Acetaminophen (10.0-30.0) ug/mL 02/05/19 02/05/19 02/05/19 Range/Units 10:15 10:15 10:15 WBC (4.5-11.0) K/mm3 RBC (3.65-5.03) M/mm3 Hgb (11.8-15.2) gm/dl Hct (35.5-45.6) % MCV (84-94) fl MCH (28-32) pg MCHC (32-34) % RDW (13.2-15.2) % Plt Count (140-440) K/mm3 PT (12.2-14.9) Sec. INR (0.87-1.13) Sodium (137-145) mmol/L Potassium (3.6-5.0) mmol/L Chloride (98-107) mmol/L Carbon Dioxide (22-30) mmol/L Anion Gap mmol/L BUN (9-20) mg/dL Creatinine (0.8-1.5) mg/dL Estimated GFR ml/min BUN/Creatinine Ratio % Glucose (75-100) mg/dL POC Glucose (70-105) Calcium (8.4-10.2) mg/dL Magnesium 3.00 H (1.7-2.3) mg/dL Total Creatine Kinase (55-170) units/L Salicylates < 0.3 L (2.8-20.0) mg/dL Acetaminophen < 5.0 L (10.0-30.0) ug/mL 02/05/19 Range/Units 10:24 WBC (4.5-11.0) K/mm3 RBC (3.65-5.03) M/mm3 Hgb (11.8-15.2) gm/dl Hct (35.5-45.6) % MCV (84-94) fl MCH (28-32) pg MCHC (32-34) % RDW (13.2-15.2) % Plt Count (140-440) K/mm3 PT (12.2-14.9) Sec. INR (0.87-1.13) Sodium (137-145) mmol/L Potassium (3.6-5.0) mmol/L Chloride (98-107) mmol/L Carbon Dioxide (22-30) mmol/L Anion Gap mmol/L BUN (9-20) mg/dL Creatinine (0.8-1.5) mg/dL Estimated GFR ml/min BUN/Creatinine Ratio % Glucose (75-100) mg/dL POC Glucose 78 (70-105) Calcium (8.4-10.2) mg/dL Magnesium (1.7-2.3) mg/dL Total Creatine Kinase (55-170) units/L Salicylates (2.8-20.0) mg/dL Acetaminophen (10.0-30.0) ug/mL - EKG Data -: EKG Interpreted by Ca EKG shows normal: sinus rhythm Rate: normal - EKG Data 02/05/19 11:33 This is a normal sinus rhythm, left axis deviation, left anterior fascicular block, poor R progression, interventricular conduction delay, QTC prolonged, NH interval prolonged, this is an abnormal EKG, the EKG is not consistent with ST elevation myocardial infarction, the EKG today appears to be unchanged from prior EKG from August 1999. - Radiology Data Radiology results: pending, report reviewed, image reviewed X-ray of the chest is negative for acute disease. Noncontrast CT scan of the brain is negative for acute disease. - Medical Decision Making Differential diagnosis, including not limited to: Hypoglycemia, resolved, and adequate oral intake, pneumonia, urinary tract infection, asymptomatic hypertensive urgency, hyperkalemia Assessment and plan: 58-year-old gentleman presenting to the ER with resolved hypoglycemia, etiology most likely receiving insulin without eating enough food. Incidentally found to have hypertension, and asymptomatic hyperkalemia, which is likely secondary to dialysis noncompliance. Contacted nephrology on-call, Dr. Albert, who advises calcium gluconate, but no other medical therapy, and indicates his group will arrange for emergent dialysis. Contacted Hospital physician, Dr. Zabrina Li, who will admit the patient to the medical service. Discussed plan of care with patient and , who verbalized understanding, and whom are amenable to hospitalization. We will withhold antibiotic therapy at this time, unless urinalysis suggests urinary tract infection, as clinically, based off of the history, we do not suspect acute bacterial infection. Critical care attestation.: If time is entered above; I have spent that time in minutes in the direct care of this critically ill patient, excluding procedure time. ED Disposition Clinical Impression: ESRD (end stage renal disease) on dialysis, Hyperkalemia, Diabetes Disposition: OP ADMIT IP TO THIS HOSP Is pt being admited?: Yes Condition: Fair Instructions: Diabetes Mellitus Type 2 in Adults (ED) Referrals: SEAN CHAIDEZ MD [Primary Care Provider] - 3-5 Days
[2019-02-05 10:32] LABS: Hemoglobin 12.5 gm/dl (11.8-15.2); Mean Corpuscular HGB Conc 33 % (32-34); Mean Corpuscular Volume 92 fl (84-94); Platelet Count 117 K/mm3 (140-440); Red Blood Count 4.14 M/mm3 (3.65-5.03); Red Cell Distribution Width 15.6 % (13.2-15.2)
--- NOTE | 2019-02-05 10:43 | XRay Report ---
CHEST 1 VIEW INDICATION / CLINICAL INFORMATION: htn esrd. History of enlarged heart, diaphoresis COMPARISON: None available. FINDINGS: SUPPORT DEVICES: None. HEART / MEDIASTINUM: No significant abnormality. LUNGS / PLEURA: No significant pulmonary or pleural abnormality. No pneumothorax. ADDITIONAL FINDINGS: No significant additional findings. IMPRESSION: No acute pulmonary or pleural abnormality. Signer Name: Benson Cisneros MD FACR Signed: 02/05/2019 10:39 AM Workstation Name: [id number]
[2019-02-05 10:46] LABS: INR 0.99 (0.87-1.13)
[2019-02-05 10:48] LABS: Calcium 9.8 mg/dL (8.4-10.2)
--- NOTE | 2019-02-05 11:05 | Cat Scan Report ---
CT head/brain wo con INDICATION: htn ams convulsion. 58-year-old male TECHNIQUE: Routine CT head without contrast. All CT scans at this location are performed using CT dos e reduction for ALARA by means of automated exposure control. COMPARISON: 10/19/2013 FINDINGS: BRAIN / INTRACRANIAL CONTENTS: There may be a mild component of cerebral and cerebellar atrophy, whic h can be within normal limits for patient's age. No acute hemorrhage, mass effect, midline shift, hydrocephalus, or acute, large territorial infarct. No chronic infarct or focal atrophy. No significant white matter abnormality. CRANIOCERVICAL JUNCTION: No significant abnormality. ORBITS: No significant abnormality of visualized orbits. SINUSES / MASTOIDS: There is mild mucosal thickening in the ethmoids. Partial opacification of the ri ght sphenoid sinus noted. ADDITIONAL FINDINGS: Temporomandibular joint disease noted on the right, as evidenced by mild flatten ing and erosive changes of the condylar head. Minimal atherosclerotic disease seen in the anterior and posterior circulation. IMPRESSION: 1. No focal mass, hemorrhage, hydrocephalus, or acute, large territorial infarct. Signer Name: Ramiro Mcconnell MD, III Signed: 02/05/2019 11:01 AM Workstation Name: [id number]
[2019-02-05] MEDS ORDERED: NACL 0.9% 100 ML IV PRN ×2 (11:31→16:24)
[2019-02-05] MEDS ORDERED: PROAMATINE PO PRN (11:31)
[2019-02-05] MEDS ORDERED: HEPARIN IV PRN (11:31)
[2019-02-05] MEDS ORDERED: APRESOLINE IV ONE (11:32)
--- NOTE | 2019-02-05 11:33 | Consultation ---
History of Present Illness - Reason for Consult Consult date: 02/05/19 end stage renal disease - History of Present Illness Mr. Alfonso is a 58yo with ESRD on HD every and DM who presented to the ED w/hypoglycemia. He states that he is prescribed Insulin 70/30 45units in the AM and 35 units in the PM. He reports low blood sugar on AM - 68. He states that he did not go to dialysis due to hypoglycemia. Mr. Alfonso states that he did not take AM insulin but did take evening insulin. Friday AM, reports that she was awakened by patient shaking in bed. She reports that pt was also confused. She checked his blood sugar and it was 51. EMS was called to home, and upon arrival, patient's blood sugar was 31. Mr. Alfonso denies fever, chills. He denies N/V and diarrhea. He dialyzes at [facility]. Past History Past Medical History: diabetes, ESRD, hypertension, PVD, other (legally blind) Past Surgical History: Other (MARIFER AVF; bilateral TMA; multiple eye surgeries) Social history: , lives with family Medications and Allergies Allergies Allergy/AdvReac Type Severity Reaction Status Date / Time vancomycin Allergy Unknown Verified 08/30/18 18:55 Home Medications Medication Instructions Recorded Confirmed Last Taken Type Aspirin [Aspirin BABY CHEW TAB] 81 mg PO DAILY 10/19/13 02/05/19 08/29/18 History Ferrous Sulfate [Feosol 325mg] 325 mg PO DAILY 10/19/13 02/05/19 08/29/18 History Atorvastatin 80 mg PO DAILY 08/31/18 02/05/19 08/29/18 History Calcitriol [Rocaltrol] 0.25 mcg PO DAILY MDD 2 08/31/18 02/05/19 08/29/18 History Cholecalciferol (Vitamin D3) 1,000 unit PO DAILY 08/31/18 02/05/19 08/29/18 History Fosrenol 500 mg PO DAILY 08/31/18 02/05/19 08/29/18 History Midodrine HCl 5 mg PO PRN 08/31/18 02/05/19 Unknown History NovoLIN 70/30 35 units SUB-Q HS 08/31/18 02/05/19 08/29/18 History NovoLIN 70/30 45 units SUB-Q AC 08/31/18 02/05/19 08/29/18 History Active Meds: Active Medications Calcium Gluconate 2,000 mg/ (Sodium Chloride) 120 mls @ 660 mls/hr IV ONCE ONE Stop: 02/05/19 12:10 Review of Systems All systems: negative Exam - Vital Signs Vital signs: Vital Signs Pulse Resp Pulse Ox 72 14 98 02/05/19 08:30 02/05/19 08:30 02/05/19 08:30 - General Appearance General appearance: well-developed, well-nourished EENT: ATNC Respiratory: Clear to Ascultation Heart: regular, S1S2 Gastrointestinal: Present: normal. Absent: tenderness, distended Integumentary: no rash, warm and dry Musculoskeletal: Present: other (no edema; MARIFER AVF +bruit) Psychiatric: cooperative Results - Lab Results 02/05/19 10:15 02/05/19 10:15 Most recent lab results Calcium 9.8 mg/dL (8.4-10.2) 02/05/19 10:15 Magnesium 3.00 mg/dL (1.7-2.3) H 02/05/19 10:15 Assessment and Plan Impression: * End stage renal disease * Hyperkalemia * Symptomatic hypoglycemia * Type II DM * Hypertension * Secondary hyperparathyroidism Plan: * Hemodialysis today * Resume TTS schedule tomorrow * UF as tolerated * Dose medications for renal function * Adjustment of DM medications per primary team * Renal diet
[2019-02-05 11:56] LABS: Bilirubin,Urine NEG (Negative); Blood,Urine NEG (Negative); Color,Urine Yellow (Yellow); Urobilinogen,Urine < 2.0 mg/dL (<2.0)
[2019-02-05] MEDS ORDERED: CALCIUM GLUCONATE 2,000 MG in NACL 0.9% 100 ML IV ONE (12:00)
[2019-02-05 12:14] LABS: Protein,Urine >500 mg/dL (Negative)
[2019-02-05] MEDS ORDERED: SODIUM CHLORIDE FLUSH SYRINGE 10 ML IV PRN (21:41)
[2019-02-05] MEDS ORDERED: DILAUDID IV PRN (21:41)
[2019-02-05] MEDS ORDERED: ZOFRAN IV PRN (21:41)
[2019-02-05] MEDS ORDERED: PERCOCET 5/325 PO PRN (21:41)
[2019-02-05] MEDS ORDERED: TYLENOL PO PRN (21:41)
[2019-02-05] MEDS ORDERED: D5NS 1,000 ML IV SCH (22:00)
[2019-02-05] MEDS ORDERED: LANTHANUM CARBONATE 500 MG PO SCH (22:00)
[2019-02-05] MEDS ORDERED: PROAMATINE PO SCH (22:00)
[2019-02-05] MEDS ORDERED: PEPCID IV SCH (22:00)
[2019-02-05] MEDS ORDERED: CHOLECALCIFEROL 1000 UNIT PO SCH (22:00)
[2019-02-05] MEDS ORDERED: NON-FORMULARY (Atorvastatin 80 MG) PO SCH (22:00)
[2019-02-05] MEDS: FEOSOL PO SCH (22:09)
[2019-02-05] MEDS: VITAMIN D3 PO SCH (22:09)
[2019-02-05] MEDS: ROCALTROL PO SCH (22:10)
[2019-02-05] MEDS: PEPCID IV SCH (22:10)
[2019-02-05] MEDS: BABY ASPIRIN PO SCH (22:10)
[2019-02-05] MEDS: SODIUM CHLORIDE FLUSH SYRINGE 10 ML IV SCH (22:13)
[2019-02-05] MEDS: HumaLOG SUB-Q SCH (22:18)
[2019-02-06] MEDS: FOSRENOL PO SCH ×2 (03:18→15:49)
--- NOTE | 2019-02-06 04:27 | Event Note ---
Date: 02/05/19 See H/p in reports HTN emergency Hypoglycemia Hyperkalemia ESRD Adjust Insulin dosage lower --defer to primary team
--- NOTE | 2019-02-06 05:05 | History and Physical Report ---
CHIEF COMPLAINT: Low blood sugar. HISTORY OF PRESENT ILLNESS: A 58-year-old -[place] male with end-stage renal disease, on hemodialysis Friday, , and Friday, comes in because of severely low sugar. As per the , the patient was in bed, sweating, and was having possible seizures, but the agrees that it was shaking more than seizures. The patient was given sugar or glucose and was corrected. The patient came back to his baseline mental status. At the time of hypoglycemia, the patient was altered sensorium. The patient takes insulin 70/30, 45 units in the morning and 30 units in the evening and of late, the patient has not been eating well. No fever or chills. PAST MEDICAL HISTORY: Significant for hypertension, hyperlipidemia, end-stage renal disease, insulin-dependent diabetes. Occasional hypotension. PAST SURGICAL HISTORY: Bilateral feet surgery, all 10 toes amputated. Right ankle surgery, third-degree dimas, blindness in both eyes. Left arm fistula. SOCIAL HISTORY: Does not smoke. Lives with his . FAMILY HISTORY: Hypertension. CURRENT MEDICATIONS: On the chart including Novolin 70/30, 45 units in the morning and 30 units in the evening, atorvastatin 80 mg once a day, calcitriol 0.25 daily. REVIEW OF SYSTEMS: Significant for altered sensorium, which was corrected after the patient was given oral glucose. PHYSICAL EXAMINATION: GENERAL: Middle-aged male, cooperative during the examination. VITAL SIGNS: Initial blood pressure was high 203/114, temperature is 97.6, pulse is 72, respirations are 14. HEENT: Unremarkable. Pupils equal and reactive. NECK: Supple, no lymphadenopathy, no thyromegaly. LUNGS: Clear to auscultation and percussion. Good air entry. CARDIOVASCULAR: S1, S2 heard. No gallop, no murmur, no rub. Apical impulse in left fifth intercostal space and midclavicular line. ABDOMEN: Soft and benign. No hepatosplenomegaly, no guarding, no rigidity. EXTREMITIES: Good pedal pulses. No pedal edema. CENTRAL NERVOUS SYSTEM: Alert and oriented x 4, nonfocal exam. SKIN: Normal. LABORATORY DATA: Significant for white count of 4300, otherwise normal CBC. CMP significant for potassium of 6.0, BUN and creatinine of 60 and 13.5, magnesium 3.0, A1c 7.2. Urine normal. No white cells. Salicylates and acetaminophen negative. EKG shows heart rate of 72 per minute, IVCD and left ventricular hypertrophy. Otherwise, sinus rhythm. Chest x-ray shows no acute findings. ASSESSMENT AND PLAN: 1. Hypertensive emergency. The patient's hypertensive medications, antihypertensives initiated. IV hydralazine given in the Emergency Room. IV hydralazine 10 mg q.3 hours p.r.n. for blood pressure. 2. Hypoglycemic, corrected. Insulin dosage to be adjusted downwards. Insulin 70/30 on hold for now. Moderate dose sliding scale coverage. 3. End-stage renal disease. Continue hemodialysis. 4. Hyperkalemia. The patient treated for hyperkalemia in the Emergency Room. The patient given calcium gluconate, bicarbonate and the patient was also given insulin and D50W. 5. Hypotension, the patient occasionally goes into hypotension. Midodrine if necessary. Midodrine p.r.n. 6. Deep venous thrombosis prophylaxis, heparin 5000 q.12 hours. 7. Insulin-dependent diabetes. Adjust the dosage of insulin. Check hemoglobin A1c. Coverage. JOB# [id number] [place]
[2019-02-06 05:56] LABS: Basophils % (Auto) 1.1 % (0.0-1.8); Eosinophils # (Auto) 0.2 K/mm3 (0.0-0.4); Eosinophils % (Auto) 6.3 % (0.0-4.3); Hematocrit 36.1 % (35.5-45.6); Hemoglobin 11.9 gm/dl (11.8-15.2); Lymphocytes # (Auto) 1.3 K/mm3 (1.2-5.4); Mean Corpuscular HGB Conc 33 % (32-34); Mean Corpuscular Volume 92 fl (84-94); Monocytes # (Auto) 0.4 K/mm3 (0.0-0.8); Monocytes % (Auto) 11.9 % (0.0-7.3); Red Blood Count 3.94 M/mm3 (3.65-5.03); Red Cell Distribution Width 15.9 % (13.2-15.2)
[2019-02-06 06:03] LABS: Platelet Count 81 K/mm3 (140-440)
[2019-02-06 06:24] LABS: Albumin 3.4 g/dL (3.9-5); Calcium 9.3 mg/dL (8.4-10.2)
[2019-02-06] MEDS ORDERED: APRESOLINE IV PRN (06:49)
[2019-02-06] MEDS: HumaLOG SUB-Q SCH ×5 (08:00→21:17)
--- NOTE | 2019-02-06 09:56 | Progress Note ---
Subjective Interval history: Patient was seen today for follow-up on multiple renal related issues Has had hemodialysis treatment yesterday Events of 24 hours vitals labs intake output medications were reviewed Interdisciplinary Notes were also reviewed Past medical history: Reviewed Social history: Reviewed Allergies: Reviewed Medication: Reviewed Labs: Reviewed Physical examination Gen.: No acute distress HEENT: Oral mucosa moist, mild pallor no icterus Neck: Supple no thyromegaly nodular mass or JVD Chest: Clear to auscultation anteriorly Heart: Regular rate and rhythm S1 and S2 heard Abdomen: Soft nontender no renal bruit no CVA tenderness no suprapubic fullness Extremity: Edema approximately 1+ dry skin no purpuric rash Dermatology: Dry skin no rash Neurological: Assessment and plan End-stage renal disease continue with hemodialysis treatment Friday schedule Anemia in end-stage renal disease: To monitor and follow Secondary hyperparathyroidism periodically check phosphorus and PTH level Hypertension and volume: Discussed with patient Diet lifestyle changes also discussed with patient Hyperkalemia currently better potassium was 6.0 currently 5.1 bicarbonate is normal hemoglobin is 11.9 platelet count as well as white cell count has declined, avoid any heparin check HIT panel, suggest avoiding hydralazine altogether 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 Patient does exhibit good understanding off multiple renal related issues We'll continue to follow and make recommendation from renal standpoint Objective - Vital Signs Vital signs: Vital Signs - 12hr 02/05/19 02/05/19 02/06/19 23:22 23:23 02:18 Temperature 98.4 F Pulse Rate 94 H 94 H Respiratory 18 Rate Blood Pressure 170/89 Blood Pressure [Right] O2 Sat by Pulse 97 Oximetry 02/06/19 02/06/19 02/06/19 05:48 05:51 07:00 Temperature 98.1 F Pulse Rate 81 81 Respiratory 18 Rate Blood Pressure 174/90 174/90 Blood Pressure [Right] O2 Sat by Pulse 97 Oximetry 02/06/19 07:57 Temperature 98.0 F Pulse Rate 89 Respiratory 16 Rate Blood Pressure Blood Pressure 155/80 [Right] O2 Sat by Pulse 99 Oximetry - Lab 02/06/19 05:12 02/06/19 05:12 Most recent lab results Calcium 9.3 mg/dL (8.4-10.2) 02/06/19 05:12 Magnesium 3.00 mg/dL (1.7-2.3) H 02/05/19 10:15 Medications & Allergies - Medications Allergies/Adverse Reactions: Allergies vancomycin Allergy (Verified 08/30/18 18:55) Unknown Home Medications: Home Medications Medication Instructions Recorded Confirmed Last Taken Type Aspirin [Aspirin BABY CHEW TAB] 81 mg PO DAILY 10/19/13 02/05/19 08/29/18 History Ferrous Sulfate [Feosol 325mg] 325 mg PO DAILY 10/19/13 02/05/19 08/29/18 History Atorvastatin 80 mg PO DAILY 08/31/18 02/05/19 08/29/18 History Calcitriol [Rocaltrol] 0.25 mcg PO DAILY MDD 2 08/31/18 02/05/19 08/29/18 History Cholecalciferol (Vitamin D3) 1,000 unit PO DAILY 08/31/18 02/05/19 08/29/18 History Fosrenol 500 mg PO DAILY 08/31/18 02/05/19 08/29/18 History Midodrine HCl 5 mg PO PRN 08/31/18 02/05/19 Unknown History NovoLIN 70/30 35 units SUB-Q HS 08/31/18 02/05/19 08/29/18 History NovoLIN 70/30 45 units SUB-Q AC 08/31/18 02/05/19 08/29/18 History Active Medications: Generic Name Dose Route Start Last Admin Trade Name Freq PRN Reason Stop Dose Admin Acetaminophen 650 mg 02/05/19 21:41 Tylenol PO Q4H PRN Pain MILD(1-3)/Fever >100.5/GOLDSMITH Aspirin 81 mg 02/05/19 22:00 02/05/19 22:10 Baby Aspirin PO 81 mg DAILY [facility] Administration Atorvastatin Calcium 80 mg 02/05/19 22:00 02/05/19 22:10 Lipitor PO 80 mg QHS [facility] Administration Calcitriol 0.25 mcg 02/05/19 22:00 02/05/19 22:10 Rocaltrol PO 0.25 mcg DAILY [facility]ULIA Administration Cholecalciferol 1,000 unit 02/05/19 22:00 02/05/19 22:09 Vitamin D3 PO 1,000 unit DAILY [facility]UL[facility] Administration Famotidine 10 mg 02/05/19 22:00 02/05/19 22:10 Pepcid IV 10 mg BID [facility] Administration Ferrous Sulfate 325 mg 02/05/19 22:00 02/05/19 22:09 Feosol PO 325 mg DAILY [facility] Administration Heparin Sodium (Porcine) 5,000 unit 02/05/19 11:31 Heparin IV SUMIT PRN hemodialysis Hydralazine HCl 10 mg 02/06/19 06:49 02/06/19 07:00 Apresoline IV 10 mg Q4HR PRN Administration Blood Pressure Hydromorphone HCl 0.5 mg 02/05/19 21:41 Dilaudid IV Q3H PRN Pain , Severe (7-10) Sodium Chloride 100 mls @ 999 mls/hr 02/05/19 11:31 Nacl 0.9% IV SUMIT PRN Hypotension Sodium Chloride 100 mls @ 999 mls/hr 02/05/19 16:24 Nacl 0.9% IV SUMIT PRN Hypotension Insulin Human Lispro 0 unit 02/05/19 22:00 02/05/19 22:18 Humalog SUB-Q Not Given ACHS [facility] Protocol Lanthanum Carbonate 500 mg 02/05/19 22:00 02/06/19 03:18 Fosrenol PO Not Given DAILY@0800 [facility] Midodrine 5 mg 02/05/19 11:31 Proamatine PO SUMIT PRN Hypotension Ondansetron HCl 4 mg 02/05/19 21:41 Zofran IV Q8H PRN Nausea And Vomiting Oxycodone/Acetaminophen 1 tab 02/05/19 21:41 Percocet 5/325 PO Q6H PRN Pain, Moderate (4-6) Sodium Chloride 10 ml 02/05/19 22:00 02/05/19 22:13 Sodium Chloride Flush Syringe 10 Ml IV 10 ml BID JULIA Administration Sodium Chloride 10 ml 02/05/19 21:41 Sodium Chloride Flush Syringe 10 Ml IV PRN PRN LINE FLUSH
[2019-02-06] MEDS: PEPCID IV SCH ×2 (10:00→21:14)
[2019-02-06] MEDS ORDERED: NACL 0.9 (PRIMING MACHINE ONLY DIALYSIS) MC ONE (10:50)
--- NOTE | 2019-02-06 13:28 | Progress Note ---
Assessment and Plan Assessment and plan: Hypoglycemia Insulin on hold dextrose iv prn Hypertensive emergency BP improved Hyperkalemia Improved Dialysis today Obesity counseled on diet and exercise to lose weight Diabbetes mellitus type 2 Novolin 70/30 on hold because of hypoglycemia A1C 7.2. May need decreased dose on dc Full code status History Interval history: Low blood glucose Gen weakness Hospitalist Physical - Physical exam Narrative exam: Gen: Not in acute distress, lying in bed,obese HEENT: Normocephalic, atraumatic Neck: supple, no JVD Heart: S1 and S2 reg, no murmurs, rubs or gallop Lungs: Clear, no crackles, no wheeze Abd: soft, non tender, non distended, normal BS Ext: No edema, no clubbing, no cyanosis, Neuro: Awake,alert, oriented x 3,moves all ext, non focal - Constitutional Vitals: Temp Pulse Resp BP Pulse Ox 98.0 F 89 16 155/80 99 02/06/19 07:57 02/06/19 07:57 02/06/19 07:57 02/06/19 07:57 02/06/19 07:57 Results - Labs CBC & Chem 7: 02/06/19 05:12 02/06/19 05:12 Labs: Laboratory Last Values WBC 3.1 K/mm3 (4.5-11.0) L 02/06/19 05:12 RBC 3.94 M/mm3 (3.65-5.03) 02/06/19 05:12 Hgb 11.9 gm/dl (11.8-15.2) 02/06/19 05:12 Hct 36.1 % (35.5-45.6) 02/06/19 05:12 MCV 92 fl (84-94) 02/06/19 05:12 MCH 30 pg (28-32) 02/06/19 05:12 MCHC 33 % (32-34) 02/06/19 05:12 RDW 15.9 % (13.2-15.2) H 02/06/19 05:12 Plt Count 81 K/mm3 (140-440) L 02/06/19 05:12 Lymph % (Auto) 42.0 % (13.4-35.0) H 02/06/19 05:12 [place] % (Auto) 11.9 % (0.0-7.3) H 02/06/19 05:12 Eos % (Auto) 6.3 % (0.0-4.3) H 02/06/19 05:12 Baso % (Auto) 1.1 % (0.0-1.8) 02/06/19 05:12 Lymph # 1.3 K/mm3 (1.2-5.4) 02/06/19 05:12 [place]herty # 0.4 K/mm3 (0.0-0.8) 02/06/19 05:12 Eos # 0.2 K/mm3 (0.0-0.4) 02/06/19 05:12 Baso # 0.0 K/mm3 (0.0-0.1) 02/06/19 05:12 Seg Neutrophils % 38.7 % (40.0-70.0) L 02/06/19 05:12 Seg Neutrophils # 1.2 K/mm3 (1.8-7.7) L 02/06/19 05:12 PT 12.8 Sec. (12.2-14.9) 02/05/19 10:15 INR 0.99 (0.87-1.13) 02/05/19 10:15 Sodium 138 mmol/L (137-145) 02/06/19 05:12 Potassium 5.1 mmol/L (3.6-5.0) H 02/06/19 05:12 Chloride 96.4 mmol/L (98-107) L 02/06/19 05:12 Carbon Dioxide 28 mmol/L (22-30) 02/06/19 05:12 19 mmol/L 02/06/19 05:12 BUN 35 mg/dL (9-20) H 02/06/19 05:12 10.0 mg/dL (0.8-1.5) H 02/06/19 05:12 Estimated GFR 6 ml/min 02/06/19 05:12 4 % 02/06/19 05:12 Glucose 203 mg/dL (75-100) H 02/06/19 05:12 POC Glucose 186 (70-105) H 02/06/19 07:49 7.2 % (4-6) H 02/05/19 10:15 Calcium 9.3 mg/dL (8.4-10.2) 02/06/19 05:12 Magnesium 3.00 mg/dL (1.7-2.3) H 02/05/19 10:15 0.50 mg/dL (0.1-1.2) 02/06/19 05:12 AST 13 units/L (5-40) 02/06/19 05:12 ALT 9 units/L (7-56) 02/06/19 05:12 70 units/L (35-129) 02/06/19 05:12 163 units/L (55-170) 02/05/19 10:15 6.8 g/dL (6.3-8.2) 02/06/19 05:12 3.4 g/dL (3.9-5) L 02/06/19 05:12 1.0 % 02/06/19 05:12 Yellow (Yellow) 02/05/19 11:43 Clear (Clear) 02/05/19 11:43 9.0 (5.0-7.0) H 02/05/19 11:43 Ur Specific [place] 1.009 (1.003-1.030) 02/05/19 11:43 >500 mg/dL (Negative) 02/05/19 11:43 >=500 mg/dL (Negative) 02/05/19 11:43 Neg mg/dL (Negative) 02/05/19 11:43 Neg (Negative) 02/05/19 11:43 Neg (Negative) 02/05/19 11:43 Neg (Negative) 02/05/19 11:43 < 2.0 mg/dL (<2.0) 02/05/19 11:43 Ur Leukocyte Esterase Neg (Negative) 02/05/19 11:43 1.0 /HPF (0.0-6.0) 02/05/19 11:43 1.0 /HPF (0.0-6.0) 02/05/19 11:43 U Epithel Cells (Auto) 1.0 /HPF (0-13.0) 02/05/19 11:43 Salicylates < 0.3 mg/dL (2.8-20.0) L 02/05/19 10:15 Acetaminophen < 5.0 ug/mL (10.0-30.0) L 02/05/19 10:15 Active Medications - Current Medications Current Medications: Generic Name Dose Route Start Last Admin Trade Name Freq PRN Reason Stop Dose Admin Acetaminophen 650 mg 02/05/19 21:41 Tylenol PO Q4H PRN Pain MILD(1-3)/Fever >100.5/GOLDSMITH Aspirin 81 mg 02/05/19 22:00 02/05/19 22:10 Baby Aspirin PO 81 mg DAILY [facility] Administration Atorvastatin Calcium 80 mg 02/05/19 22:00 02/05/19 22:10 Lipitor PO 80 mg QHS [facility] Administration Calcitriol 0.25 mcg 02/05/19 22:00 02/05/19 22:10 Rocaltrol PO 0.25 mcg DAILY [facility] Administration Cholecalciferol 1,000 unit 02/05/19 22:00 02/05/19 22:09 Vitamin D3 PO 1,000 unit DAILY [facility] Administration Famotidine 10 mg 02/05/19 22:00 02/05/19 22:10 Pepcid IV 10 mg BID [facility] Administration Ferrous Sulfate 325 mg 02/05/19 22:00 02/05/19 22:09 Feosol PO 325 mg DAILY [facility] Administration Heparin Sodium (Porcine) 5,000 unit 02/05/19 11:31 Heparin IV SUMIT PRN hemodialysis Hydralazine HCl 10 mg 02/06/19 06:49 02/06/19 07:00 Apresoline IV 10 mg Q4HR PRN Administration Blood Pressure Hydromorphone HCl 0.5 mg 02/05/19 21:41 Dilaudid IV Q3H PRN Pain , Severe (7-10) Sodium Chloride 100 mls @ 999 mls/hr 02/05/19 11:31 Nacl 0.9% IV SUMIT PRN Hypotension Sodium Chloride 100 mls @ 999 mls/hr 02/05/19 16:24 Nacl 0.9% IV SUMIT PRN Hypotension Insulin Human Lispro 0 unit 02/05/19 22:00 02/05/19 22:18 Humalog SUB-Q Not Given ACHS [facility] Protocol Lanthanum Carbonate 500 mg 02/05/19 22:00 02/06/19 03:18 Fosrenol PO Not Given DAILY@0800 [facility] Midodrine 5 mg 02/05/19 11:31 Proamatine PO SUMIT PRN Hypotension Ondansetron HCl 4 mg 02/05/19 21:41 Zofran IV Q8H PRN Nausea And Vomiting Oxycodone/Acetaminophen 1 tab 02/05/19 21:41 Percocet 5/325 PO Q6H PRN Pain, Moderate (4-6) Sodium Chloride 10 ml 02/05/19 22:00 02/05/19 22:13 Sodium Chloride Flush Syringe 10 Ml IV 10 ml BID [facility] Administration Sodium Chloride 10 ml 02/05/19 21:41 Sodium Chloride Flush Syringe 10 Ml IV PRN PRN LINE FLUSH
[2019-02-06] MEDS: FEOSOL PO SCH (15:48)
[2019-02-06] MEDS: VITAMIN D3 PO SCH (15:48)
[2019-02-06] MEDS: ROCALTROL PO SCH (15:48)
[2019-02-06] MEDS: BABY ASPIRIN PO SCH (15:49)
[2019-02-06] MEDS: SODIUM CHLORIDE FLUSH SYRINGE 10 ML IV SCH ×2 (15:49→21:14)
[2019-02-07] MEDS: VITAMIN D3 PO SCH (10:04)
[2019-02-07] MEDS: PEPCID IV SCH (10:04)
[2019-02-07] MEDS: ROCALTROL PO SCH (10:04)
[2019-02-07] MEDS: FEOSOL PO SCH (10:04)
[2019-02-07] MEDS: FOSRENOL PO SCH (10:04)
[2019-02-07] MEDS: BABY ASPIRIN PO SCH (10:04)
[2019-02-07] MEDS: SODIUM CHLORIDE FLUSH SYRINGE 10 ML IV SCH (10:05)
[2019-02-07] MEDS: HumaLOG SUB-Q SCH ×3 (10:05→17:26)
--- NOTE | 2019-02-07 10:05 | Progress Note ---
Subjective Interval history: Patient was seen today for follow-up on multiple renal related issues Currently in hemodialysis Friday We do not have a platelet count today Has been a progressive decline in platelet Interdisciplinary Notes were also reviewed Past medical history: Reviewed Social history: Reviewed Allergies: Reviewed Medication: Reviewed Labs: Reviewed Physical examination Gen.: No acute distress HEENT: Oral mucosa moist, mild pallor no icterus Neck: Supple no thyromegaly nodular mass or JVD Chest: Clear to auscultation anteriorly Heart: Regular rate and rhythm S1 and S2 heard Abdomen: Soft nontender no renal bruit no CVA tenderness no suprapubic fullness Extremity: Edema approximately 1+ dry skin no purpuric rash Dermatology: Dry skin no rash Neurological: Assessment and plan End-stage renal disease continue with hemodialysis treatment Friday schedule Patient needs follow-up on CBC on a daily basis as of yesterday's potassium was 5.1 BUN 35 creatinine 10.0 platelet count was 187,000 and 2013, 107,000 and August 2018 and currently 81,000, will obtain follow-up labs today Patient should not be given any heparin during dialysis Recommend a hematology oncology consultation Hyperkalemia currently better potassium was 6.0 currently 5.1 bicarbonate is normal hemoglobin is 11.9 platelet count as well as white cell count has declined, avoid any heparin check HIT panel, suggest avoiding hydralazine altogether 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 Patient does exhibit good understanding off multiple renal related issues We'll continue to follow and make recommendation from renal standpoint Objective - Vital Signs Vital signs: Vital Signs - 12hr 02/06/19 02/06/19 02/07/19 23:22 23:23 04:49 Temperature 97.9 F Pulse Rate 88 83 Respiratory 18 18 Rate Blood Pressure 149/78 163/86 O2 Sat by Pulse 97 98 Oximetry 02/07/19 02/07/19 04:50 09:30 Temperature 98.3 F 98.5 F Pulse Rate 89 Respiratory 18 Rate Blood Pressure 145/76 O2 Sat by Pulse 97 Oximetry - Lab 02/06/19 05:12 02/06/19 05:12 Most recent lab results Calcium 9.3 mg/dL (8.4-10.2) 02/06/19 05:12 Magnesium 3.00 mg/dL (1.7-2.3) H 02/05/19 10:15 Medications & Allergies - Medications Allergies/Adverse Reactions: Allergies vancomycin Allergy (Verified 08/30/18 18:55) Unknown Home Medications: Home Medications Medication Instructions Recorded Confirmed Last Taken Type Aspirin [Aspirin BABY CHEW TAB] 81 mg PO DAILY 10/19/13 02/05/19 08/29/18 History Ferrous Sulfate [Feosol 325mg] 325 mg PO DAILY 10/19/13 02/05/19 08/29/18 History Atorvastatin 80 mg PO DAILY 08/31/18 02/05/19 08/29/18 History Calcitriol [Rocaltrol] 0.25 mcg PO DAILY MDD 2 08/31/18 02/05/19 08/29/18 History Cholecalciferol (Vitamin D3) 1,000 unit PO DAILY 08/31/18 02/05/19 08/29/18 History Fosrenol 500 mg PO DAILY 08/31/18 02/05/19 08/29/18 History Midodrine HCl 5 mg PO PRN 08/31/18 02/05/19 Unknown History NovoLIN 70/30 35 units SUB-Q HS 08/31/18 02/05/19 08/29/18 History NovoLIN 70/30 45 units SUB-Q AC 08/31/18 02/05/19 08/29/18 History Active Medications: Generic Name Dose Route Start Last Admin Trade Name Freq PRN Reason Stop Dose Admin Acetaminophen 650 mg 02/05/19 21:41 Tylenol PO Q4H PRN Pain MILD(1-3)/Fever >100.5/GOLDSMITH Aspirin 81 mg 02/05/19 22:00 02/06/19 15:49 Baby Aspirin PO 81 mg DAILY [facility] Administration Atorvastatin Calcium 80 mg 02/05/19 22:00 02/06/19 21:14 Lipitor PO 80 mg QHS [facility] Administration Calcitriol 0.25 mcg 02/05/19 22:00 02/06/19 15:48 Rocaltrol PO 0.25 mcg DAILY [facility] Administration Cholecalciferol 1,000 unit 02/05/19 22:00 02/06/19 15:48 Vitamin D3 PO 1,000 unit DAILY [facility] Administration Famotidine 10 mg 02/05/19 22:00 02/06/19 21:14 Pepcid IV 10 mg BID [facility] Administration Ferrous Sulfate 325 mg 02/05/19 22:00 02/06/19 15:48 Feosol PO 325 mg DAILY [facility] Administration Hydralazine HCl 10 mg 02/06/19 06:49 02/06/19 07:00 Apresoline IV 10 mg Q4HR PRN Administration Blood Pressure Hydromorphone HCl 0.5 mg 02/05/19 21:41 Dilaudid IV Q3H PRN Pain , Severe (7-10) Sodium Chloride 100 mls @ 999 mls/hr 02/05/19 11:31 Nacl 0.9% IV SUMIT PRN Hypotension Sodium Chloride 100 mls @ 999 mls/hr 02/05/19 16:24 Nacl 0.9% IV SUMIT PRN Hypotension Insulin Human Lispro 0 unit 02/05/19 22:00 02/06/19 21:17 Humalog SUB-Q Not Given ACHS [facility] Protocol Lanthanum Carbonate 500 mg 02/05/19 22:00 02/06/19 15:49 Fosrenol PO 500 mg DAILY@0800 [facility] Administration Midodrine 5 mg 02/05/19 11:31 Proamatine PO SUMIT PRN Hypotension Ondansetron HCl 4 mg 02/05/19 21:41 Zofran IV Q8H PRN Nausea And Vomiting Oxycodone/Acetaminophen 1 tab 02/05/19 21:41 Percocet 5/325 PO Q6H PRN Pain, Moderate (4-6) Sodium Chloride 10 ml 02/05/19 22:00 02/06/19 21:14 Sodium Chloride Flush Syringe 10 Ml IV 10 ml BID [facility] Administration Sodium Chloride 10 ml 02/05/19 21:41 Sodium Chloride Flush Syringe 10 Ml IV PRN PRN LINE FLUSH
[2019-02-07 10:14] LABS: Calcium 9.1 mg/dL (8.4-10.2)
[2019-02-07 11:25] LABS: Basophils % (Auto) 0.7 % (0.0-1.8); Eosinophils # (Auto) 0.2 K/mm3 (0.0-0.4); Eosinophils % (Auto) 6.4 % (0.0-4.3); Hematocrit 33.7 % (35.5-45.6); Hemoglobin 11.5 gm/dl (11.8-15.2); Lymphocytes # (Auto) 1.2 K/mm3 (1.2-5.4); Lymphocytes % (Auto) 40.5 % (13.4-35.0); Mean Corpuscular HGB Conc 34 % (32-34); Mean Corpuscular Volume 91 fl (84-94); Monocytes # (Auto) 0.4 K/mm3 (0.0-0.8); Monocytes % (Auto) 13.8 % (0.0-7.3); Red Blood Count 3.73 M/mm3 (3.65-5.03); Red Cell Distribution Width 15.6 % (13.2-15.2)
[2019-02-07 11:33] LABS: Platelet Count 67 K/mm3 (140-440)
--- NOTE | 2019-02-07 16:27 | Discharge Summary ---
Providers - Providers Date of Admission: 02/05/19 14:04 Date of discharge: 02/07/19 Attending physician: URBANO WONG 02/05/19 10:03 Consult to Physician [CONS] Urgent Comment: Consulting Provider: ARINA LEONARDO Physician Instructions: Reason For Exam: esrd htn Primary care physician: [facility] MD JANIS Hospitalization Condition: Fair Hospital course: Patient is 59 yo with ESRd on dialysis, hypertension, diabetes mellitus . He was brought to ED because of hypoglycemic episode at home in which he was lethargic, was shaking. He was given juice at home, brought to ED and evaluated. Inital glucose was 74. Also had hypertensive urgency with initial BP of 178/88. He was also given Hydralazine and admitted. Insulin was held. Dialysis managed by Nephrology. By following day, BP was stable, and blood glucose was stable. He was discharged home on Novolin 70/30 at 15 U its subcut bid . Disposition: - TO HOME OR SELFCARE - Discharge Diagnoses (1) Diabetes Status: Acute (2) ESRD (end stage renal disease) on dialysis Status: Acute (3) HTN (hypertension) Status: Acute (4) Hyperkalemia Status: Acute (5) Hypoglycemia Status: Acute (6) Obesity (BMI 30.0-34.9) Status: Acute (7) Hypertensive urgency Status: Acute Core Measure Documentation - Palliative Care Palliative Care/ Comfort Measures: Not Applicable - Core Measures Any of the following diagnoses?: none Exam - Constitutional Vitals: Temp Pulse Resp BP Pulse Ox 98.5 F 89 18 145/76 97 02/07/19 09:30 02/07/19 09:30 02/07/19 09:30 02/07/19 09:30 02/07/19 09:30 Plan Activity: advance as tolerated Diet: low fat, low cholesterol, low salt, diabetic, renal Additional Instructions: 1.Follow up with Physician at [facility] in 3-5 days. 2.Follow up with Hematology at [facility] in 3-5 days for thrombocytopenia. HIT test done, report pending. 3.Continue routine hemodialysis as scheduled. 4.Follow up with nitroglycerin separator operator in 3-5 days. 5.Repeat Platelet count in 2-3 days to be followed by PCP at [facility] Follow up with: SEAN CHAIDEZ MD [Primary Care Provider] - 3-5 Days Forms: Discharge Signature Page Prescriptions: amLODIPine [Norvasc] 5 mg PO DAILY #30 tab Insulin NPH Hum/Reg Insulin Hm [Novolin 70-30 100 Unit/ml Vial] 15 unit SQ BID #1 vial
[2019-02-07] MEDS ORDERED: NORVASC PO SCH (17:00)
[2019-02-07 17:51] VITALS: BP 158/82
[2019-02-10 15:58] LABS: Heparin-Induced Platelet Antib Positive (Negative); Unfractionated Heparin Negative (Negative)
== END 2019-02-07 18:26 | disposition home or self-care (01) ==
LOC: ED 08:08 → 4A 14:04
PROVIDERS: ADMIT Internal Medicine; ATTEND Internal Medicine
DX: I12.0 Hypertensive chronic kidney disease with stage 5 chronic kidney disease or end stage renal disease (principal); E11.22 Type 2 diabetes mellitus with diabetic chronic kidney disease; N18.6 End stage renal disease; I16.1 Hypertensive emergency; E11.649 Type 2 diabetes mellitus with hypoglycemia without coma; I95.9 Hypotension, unspecified; E87.5 Hyperkalemia; E78.5 Hyperlipidemia, unspecified; Z98.890 Other specified postprocedural states; E21.3 Hyperparathyroidism, unspecified; E66.9 Obesity, unspecified; Z86.39 Personal history of other endocrine, nutritional and metabolic disease
CPT/HCPCS: 36415; 70450; 71045; 80048; 80053; 81001; 82550; 82962; 83036; 83735; 83970; 84100; 85025; 85027; 85610; 86022; 87086; 93005; 93010; 96372; 96374; 96375; 96376; 99284; A9270; G0257; G0378; G0480; J0360; J0610; J7030; 80320